=== PATIENT | female | born 1995 | race African-American/Black ===

== ENCOUNTER 2021-04-19 11:12 | Inpatient (IN) | payer OTHER ==
[~2021-04-19] VITALS: Ht 152.4 cm; Wt 100.7 kg
[2021-04-19 11:32] VITALS: BP 123/72
[2021-04-19] MEDS ORDERED: DORYX MPC120 MG PO (11:35)
[2021-04-19 12:44] LABS: ABSOLUTE BASOPHILS 0.1 thou/uL (0.0-0.2); ABSOLUTE EOSINOPHILS 0.1 thou/uL (0.0-0.7); ABSOLUTE LYMPHOCYTES 1.7 thou/uL (0.8-5.3); ABSOLUTE NEUTROPHILS 9.4 thou/uL (1.6-8.1); BASOPHILS 0.5 %; EOSINOPHILS 0.9 %; HEMATOCRIT 31.7 % (37.0-47.0); MCH 25.2 pg (26.0-34.0); MCHC 31.5 g/dL (28.0-37.0); MONOCYTES 8.3 %; MPV 7.1 fl. (7.2-11.1); NUCLEATED RBCS 0 /100WBC; PLATELET COUNT* 329 thou/uL (150-400); POLYS 76.3 %; RBC 3.96 mil/uL (4.20-5.00); RDW-CV 16.9 % (10.5-14.5); WBC 12.3 thou/uL (4.0-11.0)
[2021-04-19 12:53] LABS: CALCIUM 8.6 mg/dL (8.5-10.1); CREATININE 0.9 mg/dL (0.6-1.3); POTASSIUM 3.8 mmol/L (3.5-5.1)
[2021-04-19 13:45] LABS: ESR (SEDRATE) 70 mm/hr (0-20)
[2021-04-19 16:00] VITALS: BP 131/89
[2021-04-19 16:30] VITALS: BP 131/89
[2021-04-19 20:00] VITALS: BP 124/80
[2021-04-20] VITALS: BP 105/66
[2021-04-20 08:10] VITALS: BP 123/76
[2021-04-20 16:00] VITALS: BP 102/60
[2021-04-20 20:00] VITALS: BP 115/69
[2021-04-21 02:19] VITALS: BP 95/64
[2021-04-21 08:00] VITALS: BP 131/76
[2021-04-21 12:44] VITALS: BP 121/66
[2021-04-21 20:00] VITALS: BP 146/94
[2021-04-22 01:23] VITALS: BP 114/62
[2021-04-22 05:54] LABS: HEMATOCRIT 25.3 % (37.0-47.0); HEMOGLOBIN 8.1 gm/dL (12.0-15.0); MCH 25.6 pg (26.0-34.0); MCV 80.2 fL (80.0-100.0); MPV 7.1 fl. (7.2-11.1); RBC 3.16 mil/uL (4.20-5.00); RDW-CV 16.8 % (10.5-14.5); WBC 9.5 thou/uL (4.0-11.0)
[2021-04-22 06:08] LABS: CALCIUM 8.1 mg/dL (8.5-10.1); CREATININE 0.9 mg/dL (0.6-1.3); POTASSIUM 3.6 mmol/L (3.5-5.1)
[2021-04-22 08:00] VITALS: BP 123/70
[2021-04-22 11:30] VITALS: BP 119/74
[2021-04-22 20:00] VITALS: BP 111/71
[2021-04-23 09:30] VITALS: BP 127/82
[2021-04-23 10:35] VITALS: BP 111/71
[2021-04-23 10:49] VITALS: BP 111/71
== END 2021-04-23 11:34 | disposition home or self-care (01) | DRG 603 ==
LOC: M.ERS 11:12 → M.TBA-ER 15:26 → M.2W 16:09
PROVIDERS: Physician Assistant; ADMIT Internal Medicine; ATTEND Internal Medicine
PROC: 0J910ZZ Drainage of Face Subcutaneous Tissue and Fascia, Open Approach (ICD-10-PCS; principal; 2021-04-23)
DX: L03.211 Cellulitis of face (principal); L02.01 Cutaneous abscess of face; R65.10 Systemic inflammatory response syndrome (SIRS) of non-infectious origin without acute organ dysfunction; Z20.822 Contact with and (suspected) exposure to COVID-19; Z88.2 Allergy status to sulfonamides; Z28.21 Immunization not carried out because of patient refusal

== ENCOUNTER → 2021-04-29 | Outpatient (CLI) | payer OTHER ==
[~2021-04-29] MED LIST: DORYX MPC120 MG PO
== END ==
LOC: M.WC 08:00
PROVIDERS: ATTEND Surgery
DX: T81.89XA Other complications of procedures, not elsewhere classified, initial encounter (principal); L02.01 Cutaneous abscess of face; S01.409A Unspecified open wound of unspecified cheek and temporomandibular area, initial encounter; L03.211 Cellulitis of face; H66.90 Otitis media, unspecified, unspecified ear; F41.9 Anxiety disorder, unspecified; Z79.899 Other long term (current) drug therapy; Y83.8 Other surgical procedures as the cause of abnormal reaction of the patient, or of later complication, without mention of misadventure at the time of the procedure; X58.XXXA Exposure to other specified factors, initial encounter; Y93.89 Activity, other specified; Y92.238 Other place in hospital as the place of occurrence of the external cause; Y99.8 Other external cause status

== ENCOUNTER → 2021-05-06 | Outpatient (CLI) | payer OTHER | LOC: M.WC 07:47 | PROVIDERS: ATTEND Surgery | DX: T81.89XD Other complications of procedures, not elsewhere classified, subsequent encounter (principal); L02.01 Cutaneous abscess of face; S01.4 Open wound of cheek and temporomandibular area; L03.211 Cellulitis of face; H66.90 Otitis media, unspecified, unspecified ear; F41.9 Anxiety disorder, unspecified; X58.XXXD Exposure to other specified factors, subsequent encounter; Y83.8 Other surgical procedures as the cause of abnormal reaction of the patient, or of later complication, without mention of misadventure at the time of the procedure ==

== ENCOUNTER → 2021-05-14 | Outpatient (CLI) | payer OTHER | LOC: M.WC 08:13 | PROVIDERS: ATTEND Surgery | DX: T81.89XD Other complications of procedures, not elsewhere classified, subsequent encounter (principal); L02.01 Cutaneous abscess of face; S01.4 Open wound of cheek and temporomandibular area; L03.211 Cellulitis of face; H66.90 Otitis media, unspecified, unspecified ear; F41.9 Anxiety disorder, unspecified; X58.XXXD Exposure to other specified factors, subsequent encounter; Y83.8 Other surgical procedures as the cause of abnormal reaction of the patient, or of later complication, without mention of misadventure at the time of the procedure ==

== ENCOUNTER → 2021-05-20 | Outpatient (CLI) | payer OTHER | LOC: M.WC 08:43 | PROVIDERS: ATTEND Surgery | DX: T81.89XD Other complications of procedures, not elsewhere classified, subsequent encounter (principal); L02.01 Cutaneous abscess of face; S01.4 Open wound of cheek and temporomandibular area; L03.211 Cellulitis of face; H66.90 Otitis media, unspecified, unspecified ear; F41.9 Anxiety disorder, unspecified; X58.XXXD Exposure to other specified factors, subsequent encounter; Y83.8 Other surgical procedures as the cause of abnormal reaction of the patient, or of later complication, without mention of misadventure at the time of the procedure ==

== ENCOUNTER → 2021-05-27 | Outpatient (CLI) | payer OTHER | LOC: M.WC 08:24 | PROVIDERS: ATTEND Surgery | DX: T81.89XD Other complications of procedures, not elsewhere classified, subsequent encounter (principal); S01.4 Open wound of cheek and temporomandibular area; L02.01 Cutaneous abscess of face; L03.211 Cellulitis of face; H66.90 Otitis media, unspecified, unspecified ear; F41.9 Anxiety disorder, unspecified; X58.XXXD Exposure to other specified factors, subsequent encounter; Y83.8 Other surgical procedures as the cause of abnormal reaction of the patient, or of later complication, without mention of misadventure at the time of the procedure ==

== ENCOUNTER → 2021-06-03 | Outpatient (CLI) | payer OTHER | LOC: M.WC 08:46 | PROVIDERS: ATTEND Internal Medicine | DX: T81.89XD Other complications of procedures, not elsewhere classified, subsequent encounter (principal); S01.4 Open wound of cheek and temporomandibular area; L02.01 Cutaneous abscess of face; L03.211 Cellulitis of face; H66.90 Otitis media, unspecified, unspecified ear; F41.9 Anxiety disorder, unspecified; X58.XXXD Exposure to other specified factors, subsequent encounter; Y83.8 Other surgical procedures as the cause of abnormal reaction of the patient, or of later complication, without mention of misadventure at the time of the procedure ==

== ENCOUNTER → 2021-06-11 | Outpatient (CLI) | payer OTHER | LOC: M.WC 09:00 | PROVIDERS: ATTEND Surgery | DX: L02.01 Cutaneous abscess of face (principal); S01.4 Open wound of cheek and temporomandibular area; Z79.899 Other long term (current) drug therapy; X58.XXXD Exposure to other specified factors, subsequent encounter ==

== ENCOUNTER → 2021-06-17 | Outpatient (CLI) | payer OTHER | LOC: M.WC 08:24 | PROVIDERS: ATTEND Surgery | DX: L02.01 Cutaneous abscess of face (principal); S01.4 Open wound of cheek and temporomandibular area; Z79.899 Other long term (current) drug therapy; X58.XXXD Exposure to other specified factors, subsequent encounter ==